=== PATIENT | female | born 1975 | race African-American/Black ===

== ENCOUNTER 2019-08-17 10:10 | Emergency (ER) | payer BC, OTHER ==
[2019-08-18 16:07] LABS: SARS-CoV-2 MS2 Positive; SARS-CoV-2 N Gene Negative; SARS-CoV-2 S Gene Negative; SARS-CoV-2 orf1ab Negative
== END 2019-08-17 11:05 | disposition home or self-care (01) ==
LOC: NAV ERS 10:10
DX: R51 Headache (principal); Z20.828 Contact with and (suspected) exposure to other viral communicable diseases
CPT/HCPCS: 87635; 99284; U0003